=== PATIENT | male | born 1960 | race Caucasian/White ===

== ENCOUNTER 2017-05-16 16:30 | Emergency (ER) | payer BC ==
[2017-05-16] MEDS ORDERED: Aspirin 81 MG Tab.Chew PO ONE (16:46)
[2017-05-16 17:12] LABS: CHLORIDE,CL 103 mmol/L (101-111); SODIUM,NA 139 mmol/L (135-145)
--- NOTE | 2017-05-16 18:00 | EDM.PDOC ---
<Best Hall M - Last Filed: 05/16/17 18:00> ED HPI GENERAL MEDICAL PROBLEM - General Chief Complaint: Chest Pain Stated Complaint: CHEST PAINS,SOB [id number] Time Seen by Provider: 05/16/17 16:50 Source of Information: Reports: Patient History Limitations: Reports: No Limitations - History of Present Illness INITIAL COMMENTS - FREE TEXT/NARRATIVE: This 57 yo male patient reports to the ED with chest pain, radiating to his left arm and left shoulder. The patient reports his symptoms started about 30 minutes prior to coming to the ED. The patient reports his symptoms had resolved prior to arrival in the ED. The patient reports no history of previous cardiac problems. 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 Onset: Today Onset Date: 05/16/17 Onset Time: 16:00 Duration: Resolved Prior to Arrival Location: Reports: Chest, Radiates to (left arm and shoulder) Quality: Reports: Ache, Dull Severity: Moderate Improves with: Reports: None Worsens with: Reports: None Associated Symptoms: Reports: Chest Pain Left Chest Pain Score (Numeric/FACES): 4 - Related Data Allergies Allergy/AdvReac Type Severity Reaction Status Date / Time No Known Allergies Allergy Verified 05/16/17 16:45 Home Meds: Home Meds Rosuvastatin Calcium 5 mg PO DAILY 05/16/17 [History] Past Medical History HEENT History: Reports: Impaired Vision, Other (See Below) Other HEENT History: wears glasses Cardiovascular History: Reports: High Cholesterol Musculoskeletal History: Reports: Fracture, Other (See Below) Other Musculoskeletal History: broken bones as child Social & Family History - Tobacco Use Smoking Status *Q: Current Every Day Smoker Years of Tobacco use: 10 Packs/Tins Daily: 0.1 Second Hand Smoke Exposure: No - Alcohol Use Days Per Week of Alcohol Use: 2 Number of Drinks Per Day: 12 Total Drinks Per Week: 24 - Recreational Drug Use Recreational Drug Use: No ED ROS GENERAL - Review of Systems Review Of Systems: ROS reveals no pertinent complaints other than HPI. ED EXAM, GENERAL - Physical Exam Exam: See Below Exam Limited By: No Limitations General Appearance: Alert, WD/WN, No Apparent Distress Eye Exam: Bilateral Eye: EOMI, Normal Inspection, PERRL Ears: Normal External Exam, Normal Canal, Hearing Grossly Normal, Normal TMs Nose: Normal Inspection, Normal Mucosa, No Blood Throat/Mouth: Normal Inspection, Normal Lips, Normal Teeth, Normal Gums, Normal Oropharynx, Normal Voice, No Airway Compromise Head: Atraumatic, Normocephalic Neck: Normal Inspection, Supple, Non-Tender, Full Range of Motion Respiratory/Chest: No Respiratory Distress, Lungs Clear, Normal Breath Sounds, No Accessory Muscle Use, Chest Non-Tender Cardiovascular: Normal Peripheral Pulses, Regular Rate, Rhythm, No Edema, No Gallop, No JVD, No Murmur, No Rub GI/Abdominal: Normal Bowel Sounds, Soft, Non-Tender, No Organomegaly, No Distention, No Abnormal Bruit, No Mass (Male) Exam: Deferred Rectal (Males) Exam: Deferred Back Exam: Normal Inspection, Full Range of Motion, NT Extremities: Normal Inspection, Normal Range of Motion, Non-Tender, Normal Capillary Refill, No Pedal Edema Neurological: Alert, Oriented, CN II-XII Intact, Normal Cognition, Normal Gait, Normal Reflexes, No Motor/Sensory Deficits Psychiatric: Normal Affect, Normal Mood Skin Exam: Warm, Dry, Intact, Normal Color, No Rash Lymphatic: No Adenopathy Course - Vital Signs Last Recorded V/S: Last Vital Signs Temp 98 F 05/16/17 21:22 Pulse 48 L 05/16/17 21:22 Resp 16 05/16/17 21:22 BP 114/68 05/16/17 21:22 Pulse Ox 98 05/16/17 21:22 - Orders/Labs/Meds Orders: Active Orders 24 hr Category Date Time Status EKG 12 Lead [EKG Documentation Completion] [RC] STAT Care 05/16/17 20:13 Active EKG Documentation Completion [RC] URGENT Care 05/16/17 16:46 Active Labs: Laboratory Tests 05/16/17 05/16/17 05/16/17 Range/Units 16:42 16:42 16:42 WBC 7.1 (5.0-10.0) 10^3/uL RBC 4.88 (4.6-6.2) 10^6/uL Hgb 15.3 (14.0-18.0) g/dL Hct 43.1 (40.0-54.0) % MCV 88.3 (80-100) fL MCH 31.4 (27.0-34.0) pg MCHC 35.5 H (33.0-35.0) g/dL Plt Count 171 (150-450) 10^3/uL Neut % (Auto) 54.2 (42.2-75.2) % Lymph % (Auto) 28.4 (20.5-50.1) % Grady % (Auto) 12.1 H (2-8) % Eos % (Auto) 4.7 H (1.0-3.0) % Baso % (Auto) 0.6 (0.0-1.0) % Sodium 139 (135-145) mmol/L Potassium 4.2 (3.6-5.0) mmol/L Chloride 103 (101-111) mmol/L Carbon Dioxide 27.0 (21.0-31.0) mmol/L Anion Gap 13.2 BUN 17 (7-18) mg/dL Creatinine 1.2 (0.6-1.3) mg/dL Est Cr Clr Drug Dosing 73.21 mL/min Estimated GFR (MDRD) > 60 BUN/Creatinine Ratio 14.16 Glucose 85 (74-105) mg/dL Calcium 9.5 (8.4-10.2) mg/dl Total Bilirubin 0.8 (0.2-1.0) mg/dL AST 26 (10-42) IU/L ALT 29 (10-60) IU/L Alkaline Phosphatase 55 (42-121) IU/L CK-MB (CK-2) 4.00 (0.4-4.7) ng/mL Troponin I < 0.02 (0.00-0.02) ng/ml Total Protein 7.8 (6.7-8.2) g/dl Albumin 4.4 (3.2-5.5) g/dl Globulin 3.4 Albumin/Globulin Ratio 1.29 08/16/17 Range/Units 20:15 WBC (5.0-10.0) 10^3/uL RBC (4.6-6.2) 10^6/uL Hgb (14.0-18.0) g/dL Hct (40.0-54.0) % MCV (80-100) fL MCH (27.0-34.0) pg MCHC (33.0-35.0) g/dL Plt Count (150-450) 10^3/uL Neut % (Auto) (42.2-75.2) % Lymph % (Auto) (20.5-50.1) % Grady % (Auto) (2-8) % Eos % (Auto) (1.0-3.0) % Baso % (Auto) (0.0-1.0) % Sodium (135-145) mmol/L Potassium (3.6-5.0) mmol/L Chloride (101-111) mmol/L Carbon Dioxide (21.0-31.0) mmol/L Anion Gap BUN (7-18) mg/dL Creatinine (0.6-1.3) mg/dL Est Cr Clr Drug Dosing mL/min Estimated GFR (MDRD) BUN/Creatinine Ratio Glucose (74-105) mg/dL Calcium (8.4-10.2) mg/dl Total Bilirubin (0.2-1.0) mg/dL AST (10-42) IU/L ALT (10-60) IU/L Alkaline Phosphatase (42-121) IU/L CK-MB (CK-2) (0.4-4.7) ng/mL Troponin I < 0.02 (0.00-0.02) ng/ml Total Protein (6.7-8.2) g/dl Albumin (3.2-5.5) g/dl Globulin Albumin/Globulin Ratio Meds: Medications Discontinued Medications Generic Name Dose Route Start Last Admin Trade Name Freq PRN Reason Stop Dose Admin Aspirin 324 mg 05/16/17 16:46 05/16/17 16:51 Aspirin PO 05/16/17 16:47 324 mg ONETIME ONE Administration - Re-Assessments/Exams Free Text/Narrative Re-Assessment/Exam: 05/16/17 17:59 The patient was advised of the examination, lab, EKG and x-ray results. The patient was placed on extended ED for a repeat Troponin level scheduled for 2029. Departure - Departure Disposition: Home, Self-Care 01 Clinical Impression: Non-cardiac chest pain Instructions: Nonspecific Chest Pain, [id number] Forms: ED Department Discharge Additional Instructions: follow up in clinic next week, urgent follow up if chest pain with vomiting, sweating light diet, low acid clinic follow up next week - My Orders Last 24 Hours: My Active Orders 05/16/17 20:13 EKG 12 Lead [EKG Documentation Completion] [RC] STAT - Assessment/Plan Last 24 Hours: My Active Orders 05/16/17 20:13 EKG 12 Lead [EKG Documentation Completion] [RC] STAT <Dorothea Brooks - Last Filed: 05/17/17 04:20> Course - Re-Assessments/Exams Free Text/Narrative Re-Assessment/Exam: 5: Has remained pain free , VS stable. Repeat EKG and troponin negative. Departure - Departure Time of Disposition: 21:25 Condition: Good
[2017-05-16 21:24] VITALS: BP 114/68
--- NOTE | 2017-05-17 22:37 | EKG ---
05/16/2017 - KATIA OLIVIER - EKG done on a 57-year-old male on 05/16/2017 at 1632 hours showed sinus bradycardia with a heart rate of 53 beats per minute. Normal intervals. Normal axis. No acute ST-T wave changes. [facility] /[id number]
--- NOTE | 2017-05-18 08:45 | EKG ---
05/16/2017- KATIA OLIVIER - EKG at 2020 hours showed sinus bradycardia, heart rate 49 beats per minute. Normal intervals. No acute ST-T wave changes. [facility] /[id number]
== END 2017-05-16 21:54 | disposition home or self-care (01) ==
LOC: DL.ED 16:30
DX: R07.89 Other chest pain (principal); F17.210 Nicotine dependence, cigarettes, uncomplicated; E78.00 Pure hypercholesterolemia, unspecified; Z79.899 Other long term (current) drug therapy
CPT/HCPCS: 36415; 71010; 80053; 82553; 84484; 85025; 93005; 99285; A9270

== ENCOUNTER → 2019-12-10 | Day surgery (SDC) | payer BC ==
[~2019-12-10] MED LIST: Dextrose 5%-0.45% NaCl 1,000 ML IV SCH; Midazolam 1 MG/ML 2 ML SDV IV ONE; Midazolam 1 MG/ML 2 ML SDV ONE; fentaNYL 100 MCG/2 ML SDV IV ONE; fentaNYL 100 MCG/2 ML SDV ONE
[2019-12-10 10:30] VITALS: BP 121/75; PULSE 60
--- NOTE | 2019-12-10 14:02 | OR ---
DATE: 12/10/2019 PREOPERATIVE DIAGNOSIS: Screening colonoscopy. POSTOPERATIVE DIAGNOSIS: Screening colonoscopy. PROCEDURE: Total colonoscopy. ANESTHESIA: Conscious sedation with IV Versed and fentanyl. SPECIMEN: None. OPERATIVE FINDINGS: Normal colonoscopy. INDICATIONS FOR PROCEDURE: This 59-year-old male presents for screening colonoscopy. PROCEDURE IN DETAIL: After adequate preparation, a colonoscope was inserted into the rectum. This was easily passed all the way to the cecum. Confirmation of the cecum was made by visualization of the ileocecal valve and palpation in the right lower quadrant. The bowel prep was good. On withdrawal of the scope, no abnormalities were noted. Rectal and anal examination were also normal. He does have a few external hemorrhoids of no consequence. Air was suctioned from the colon and the scope removed. [facility] /[id number]
== END ==
LOC: DL.ENDO 07:50
PROVIDERS: ATTEND Surgery
DX: Z12.11 Encounter for screening for malignant neoplasm of colon (principal); K64.4 Residual hemorrhoidal skin tags; Z83.71 Family history of colonic polyps; Z91.013 Allergy to seafood
CPT/HCPCS: G0121; J2250; J3010; J7042